=== PATIENT | male | born 2000 | race African-American/Black ===

== ENCOUNTER 2018-07-05 11:10 | Emergency (ER) | payer MEDICAID ==
[~2018-07-05] VITALS: Ht 175.3 cm; Wt 62.6 kg
[2018-07-05 11:35] VITALS: BP 116/68
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
--- NOTE | 2018-07-05 11:45 | NUR ---
ED Nurse Note: pt stated that he would wait until the glass on his index finger comes out, ermd made aware and with verbal order of bacitracin and applied to pt and pt able to tolerate well. will continue to monitor
[2018-07-05] MEDS ORDERED: Bacitracin Oint UD TOPIC ONE ×2 (12:14→12:15)
[2018-07-05] MEDS ORDERED: BACITRACIN ZIN1 EACH TOPIC (12:31)
[2018-07-05 12:34] VITALS: BP 116/68
--- NOTE | 2018-07-05 12:34 | NUR ---
ER DISCHARGE NOTE: Patient is cleared to be discharged per ERMD, pt is aox4, on room air, with stable vital signs. pt was given dc and prescription instructions, pt was able to verbalize understanding, pt id band removed without complications. pt is able to ambulate with steady gait. pt took all belongings.
== END 2018-07-05 12:34 | disposition home or self-care (01) ==
LOC: EMR 11:50
DX: M79.5 Residual foreign body in soft tissue (principal); Z88.8 Allergy status to other drugs, medicaments and biological substances
CPT/HCPCS: 99282